=== PATIENT | female | born 1985 | race Caucasian/White ===

== ENCOUNTER 2020-12-16 11:54 | Outpatient (CLI) | payer OTHER, SELFPAY ==
--- NOTE | 2020-12-16 12:00 | XR_ITS ---
WS: [id number] XR KUB [id number] REASON FOR EXAM: STONES FINDINGS: The examination is unchanged compared to previous study of 12/13/2020. There are a group of 3 calculi overlying the lower pole of the left kidney and additional small calcu santi overlying the midportion of the left kidney. A single calculus is seen overlying the mid to lower portion of the right kidney. No calculi along the course of the ureters or in the bladder region are identified. XR/XR KUB [id number] IMPRESSION: Bilateral intrarenal calculi.
== END 2020-12-16 11:55 | disposition home or self-care (01) ==
LOC: RAD 11:57
PROVIDERS: PCP Family Medicine; Visit Provider Urology
DX: N20.0 Calculus of kidney (principal)
CPT/HCPCS: 74018; 81003

== ENCOUNTER 2020-12-31 15:17 | Outpatient (CLI) | payer OTHER, SELFPAY ==
--- NOTE | 2020-12-31 15:15 | XR_ITS ---
WS: [id number] KUB, 12/31/2020 Clinical Data: N20.0 - Calculus of kidney Comparison: KUB, 12/16/2020. Findings: There are several calcifications overlying the midportion left kidney. There is a calcification of th e right of the L2 transverse process which may be in the right kidney or in the proximal right ureter . There is a calcification in the true pelvis just to the left of the sacrum which could be in the blad ryan. The SI joints and pubic symphysis are normal. The bowel gas pattern is unremarkable.. XR/XR KUB [id number] Impression: Bilateral renal and/or ureteral calculi.
== END 2020-12-31 15:18 | disposition home or self-care (01) ==
PROVIDERS: PCP Family Medicine; Visit Provider Urology
DX: N20.0 Calculus of kidney (principal)
CPT/HCPCS: 74018; 81003

== ENCOUNTER 2021-01-08 07:20 | Outpatient (CLI) | payer OTHER, SELFPAY ==
--- NOTE | 2021-01-08 07:15 | XR_ITS ---
WS: [id number] KUB, AP view, 01/08/2021 Clinical Data: N20.0 - Calculus of kidney Comparison: KUB, 12/31/2020. Findings: There are several calcifications overlying the left kidney. There is a calcification of the right of the L2 transverse process which may be in the right renal pelvis. There is a small calcification on the left side of the true pelvis which could be in the bladder. The re is a density overlying the right ilium which was not previously present but may be on the patient' s clothing. XR/XR KUB [id number] Impression: Bilateral renal calculi and possible left true pelvic calculus.
== END 2021-01-08 07:21 | disposition home or self-care (01) ==
LOC: RAD 07:21
PROVIDERS: PCP Family Medicine; Visit Provider Urology
DX: N20.0 Calculus of kidney (principal)
CPT/HCPCS: 74018; 81003

== ENCOUNTER 2021-01-12 12:55 | Day surgery (SDC) | payer OTHER, SELFPAY ==
[2021-01-09 16:57] VITALS: BMI 27.4
--- NOTE | 2021-01-12 13:04 | XRR_ITS ---
PROCEDURE INFORMATION: Exam: XR Abdomen Exam date and time: 01/12/2021 3:05 AM Age: 35 years old Clinical indication: Condition or disease; Kidney or ureter condition; Calculus (stone) in kidney; Additional info: Right renal calculus TECHNIQUE: Imaging protocol: XR of the abdomen. Views: Frontal supine view of the abdomen. 1 View. COMPARISON: CR XR KUB [id number] 01/08/2021 7:33 AM FINDINGS: Gastrointestinal tract: Normal. No bowel dilation. Organs: Radiodense urinary tract stones are present in the upper pole right kidney 4.4 mm. Radiodense urinary tract stones are also seen in the upper pole left kidney 4 mm and 7.8 mm. These findings were present on prior examination and appears similar. Examination is negative for stones in the projection of the urinary outflow tracts. Bones/joints: Unremarkable. XR/XR KUB [id number] IMPRESSION: 1. Stable calcified urinary tract stones in both kidneys as described. 2. Otherwise No acute findings.
[2021-01-12 13:29] LABS: OR HCG Qualitative Urine Negative (Negative)
[2021-01-12 13:31] VITALS: BP 157/93; PULSE 80; RESP 18; TEMP 36.8; O2SAT 96
[2021-01-12] MEDS: sodium chloride 0.9% 1,000 ML 30 ML IV (13:39)
--- NOTE | 2021-01-12 14:51 | ANES.PREANE2 ---
Pre-Anesthetic Assessment Pre-Anesthetic Assessment: Height/Weight: Height 1.63 m Weight 72.575 kg Temp Pulse Resp BP Pulse Ox 98.2 F 80 18 157/93 96 01/12/21 13:31 01/12/21 13:31 01/12/21 13:31 01/12/21 13:31 01/12/21 13:31 Preop Diagnosis: Symptomatic right renal calculus Proposed Procedure: Operation Date: 01/12/21 14:25 Proposed Procedures p Cystoscopy 47475 85472 N20.0(Not Applicable) - Rafa Enriquez MD s right Ureteral Stent Placement(Right) - Rafa Enriquez MD s ESWL(Not Applicable) - Rafa Enriquez MD Was Beta Oscar taken within 24 hours: N/A Was Clonidine taken within 24 hours: N/A Last intake: Intake Last Liquid Date 01/12/21 Last Liquid Time 09:00 Last Solid Date 01/11/21 Last Solid Time 08:00 Social: Social History: No alcohol and No tobacco Exam: Pre-Anes Outpt Exam: alert, oriented x 3, clear to auscultation bilaterally and regular rate & rhythm Airway: Submandibular: WNL Cervical ROM: WNL MP: 2 Pulmonary: Pulmonary: None reported CV/HEM: CV/HEM: None reported : Comments: Recurrent kidney stones Hepatic: Hepatic: None reported GI: GI: GERD (Mild and triggered by spicy foods) Metabolic: Metabolic: None reported Musc/skel: Musc/skel: None reported Neuropsych: Neuropsych: None reported Anesthetic Plan: ASA status: 2 Anesthesia: General Meds/Allergies Current Medications: Current Medications Generic Name Dose Route Start Last Admin Trade Name Freq PRN Reason Stop Dose Admin Sodium Chloride 1,000 mls @ 30 ml s/hr 01/12/21 13:15 01/12/21 13:39 Sodium Chloride 0.9% IV 01/13/21 13:14 30 mls/hr .Q24H MARINO Administration PFSH Anesthesia PFSH: Medical History Calculus of left kidney Complex partial epilepsy History of migraine headaches Renal calculus Right ureteral calculus S/P extracorporeal shock wave therapy Surgical History H/O dilation and curettage H/O: 2 c-sections Family History Father Lung disease Social History Smoking and tobacco status: never smoked Alcohol intake: current Alcohol intake frequency: holidays/special occasions only Marital status: Current occupational status: employed Current occupation: [employer] History of recent travel: No Data Anesthesia Other Labs: Laboratory Results - last 48 hr 01/12/21 13:20 Urine HCG, Qual Negative Cardiac Studies: No Data to Display
--- NOTE | 2021-01-12 14:55 | P.HPUD_ITS ---
Surgery/Procedure H&P Update DATE OF PROCEDURE: January 12, 2021 DATE H&P PERFORMED: 01/08/21 H&P UPDATE INFORMATION: I have reviewed H&P completed within last 30 days, I have examined patient prior to procedure, No changes to prior documentation and H&P is in [facility] EMR on date indicated PREOP DIAGNOSIS: Symptomatic right renal calculus PRIMARY INDICATION FOR PROCEDURE: KUB shows the stone in roughly the same position in the right kidney. PLANNED PROCEDURE: Operation Date: 01/12/21 14:25 Proposed Procedures p Cystoscopy 97404 71518 N20.0(Not Applicable) - Rafa Enriquez MD s right Ureteral Stent Placement(Right) - Rafa Enriquez MD s ESWL(Not Applicable) - Rafa Enriquez MD
--- NOTE | 2021-01-12 14:56 | PM.OP ---
Operative Report Date of procedure: January 12, 2021 Pre-op Diagnosis: Symptomatic right renal calculus Post-op diagnosis: same Procedure Done: 1. Extracorporeal shockwave lithotripsy, right renal calculus 2. Cystoscopy with right ureteral stent placement (6 [place]an by 26 cm double-pigtail without string) Pathology: none sent Surgeon: Zoe Anesthesia: General Estimated blood loss: Minimal Urine output: Not measured Complications: None Findings: Stone easily identified and focused upon with fluoroscopy and position changes dictated by that. Good change noted Condition: stable Disposition: PACU Brief History: Fernanda is a delightful 35-year-old white female with a history of complex stone disease. Has recently been seen for a right renal calculus that migrates back and forth from the right UPJ into the renal pelvis. She has been quite symptomatic at times. Ultimately she elected to proceed with intervention. Reviewed options including endoscopic versus ESWL and after detailed discussion of benefits risk etc. she elected ESWL with or without stent. Procedure: After routine preoperative evaluation examination and obtaining informed consent she was taken to the operating suite on 01/12/2021 where general anesthesia was administered without difficulty after appropriate timeout was performed, SCDs confirmed to be functioning, preoperative antibiotics administered, beta-stephon protocol confirmed. Positioned on the Dornier unit in supine position with the shock head posteriorly. The right renal calculus was easily identified and brought to the focal point. Shockwave was initiated intensity of 1 advanced an intensity of 4 at a rate of 70. A several minute pause was conducted after about 300 shocks Early change was noted. After about 800 shocks the rate was increased to 90. At around 1500 it was difficult to see any residual stone and the procedure was completed after 2000 shocks. She was then positioned in dorsolithotomy position paying careful attention to avoiding pressure points. Cystoscope was introduced into the urethra meatus. A flexible tip guidewire was easily advanced up the right ureter. A 6 Zimbabwean by 26 cm double-pigtail stent without string was then advanced over the guidewire through the cystoscope into appropriate position as confirmed via fluoroscopy and cystoscopy The bladder was drained and the procedure was completed. She tolerated the procedure well without complications and was awakened in the operating room and returned to the recovery in stable condition PLANS: 1. Anticipate discharge from outpatient surgery 2. Follow-up in 1 week with KUB and likely cystoscopy with stent removal 3. Strain all voids
[2021-01-12] MEDS: levofloxacin-dextrose 5 % 500 MG/100 ML PREMIX 100 MG IV (15:10)
[2021-01-12 16:14] VITALS: BP 111/81; PULSE 120; RESP 16; TEMP 36.2; O2SAT 100
--- NOTE | 2021-01-12 16:17 | P.PCN_ITS ---
PACU note PACU note: VSS, Good respiratory effort, report to ELECTRICAL ENGINEERING TECHNICIAN Post-Anesthesia Exam: awake
--- NOTE | 2021-01-12 16:17 | PM.PACU ---
PACU note PACU note: VSS, Good respiratory effort, report to ELECTRIC DOLLY OPERATOR Post-Anesthesia Exam: awake
[2021-01-12 16:20] VITALS: BP 124/80; PULSE 114; RESP 18; O2SAT 100
[2021-01-12 16:25] VITALS: BP 120/84; PULSE 99; RESP 12; TEMP 36.6; O2SAT 99
--- NOTE | 2021-01-12 16:25 | ANE.PACU2 ---
Inpatient post-anesthesia follow up: Airway intact: Yes Vital signs: Temperature 97.2 F Pulse Rate 114 Respiratory Rate 18 Blood Pressure 124/80 Pulse Oximetry 100 Oxygen Delivery Me thod Room Air Oxygen Flow Rate Fraction of Inspir ed Oxygen Hydration adequate: Yes Nausea and vomiting: No Pain level: 2 Mental status: Baseline
[2021-01-12 16:35] VITALS: BP 136/69; PULSE 100; RESP 18; TEMP 36.6; O2SAT 99
[2021-01-12 16:49] VITALS: BP 140/96; PULSE 97; RESP 18; TEMP 36.6; O2SAT 97
== END 2021-01-12 17:10 | disposition home or self-care (01) ==
PROVIDERS: Anesthesiology; PCP Family Medicine; Visit Provider Urology
PROC: 0TJB8ZZ Inspection of Bladder, Via Natural or Artificial Opening Endoscopic (ICD-10-PCS; CPT 52000; principal; 2021-01-12 14:20)
PROC: (CPT 50605; 2021-01-12 14:20)
PROC: (CPT 50590; 2021-01-12 14:20)
DX: N20.0 Calculus of kidney (principal)
CPT/HCPCS: 50590; 52332; 74018; 84703; 96365; C2625; J1100; J1956; J2250; J2405; J2704; J2710; J3010; J3490; J7030

== ENCOUNTER 2021-01-20 08:09 | Outpatient (CLI) | payer OTHER, SELFPAY ==
--- NOTE | 2021-01-20 08:24 | XRR_ITS ---
PROCEDURE INFORMATION: Exam: XR Abdomen Exam date and time: 01/20/2021 8:27 AM Age: 35 years old Clinical indication: Condition or disease; Kidney or ureter condition; Calculus (stone) in kidney; Prior surgery; Surgery type: C section; Additional info: Kidney stone TECHNIQUE: Imaging protocol: XR of the abdomen. Views: Frontal supine view of the abdomen. 1 View. COMPARISON: CR XR KUB [id number] 01/12/2021 1:11 PM FINDINGS: Tubes, catheters and devices: A right ureteral stent projects in satisfactory position. Gastrointestinal tract: Normal. No bowel dilation. Organs: Multiple calcifications project on the kidneys bilaterally. The calculus previously seen in the right kidney appears to be fragmented into smaller densities projecting in the right kidney. The left renal calcifications are unchanged. No definite calculi are seen in the course of the ureters. Bones/joints: Unremarkable. XR/XR KUB [id number] IMPRESSION: 1. Satisfactory right ureteral stent position. 2. The previously noted right renal calcification appears fragmented into smaller calcifications now in the right kidney. 3. No significant change in the left renal calcifications.
== END 2021-01-20 08:10 | disposition home or self-care (01) ==
PROVIDERS: PCP Family Medicine; Visit Provider Urology
DX: N20.0 Calculus of kidney (principal); Z96.0 Presence of urogenital implants
CPT/HCPCS: 74018; 81003

== ENCOUNTER 2021-04-21 07:28 | Outpatient (CLI) | payer OTHER, SELFPAY ==
--- NOTE | 2021-04-21 07:30 | XR_ITS ---
WS: [id number] KUB, AP view, 04/21/2021 Clinical Data: RENAL CALCULUS Comparison: KUB, 01/20/2021. Findings: The right kidney is obscured by overlying fecal material and colon gas. There are calcifications over lying the left kidney. The right ureteral stent has been removed. There are probable phleboliths in t he left true pelvis. The bowel gas pattern is not remarkable. XR/XR KUB [id number] Impression: 1. Right kidney obscured by equal material and gas. 2. Left renal calcifications.
== END 2021-04-21 07:29 | disposition home or self-care (01) ==
PROVIDERS: PCP Family Medicine; Visit Provider Urology
DX: N20.0 Calculus of kidney (principal)
CPT/HCPCS: 74018; 81003

== ENCOUNTER 2021-07-14 07:19 | Outpatient (CLI) | payer OTHER, SELFPAY ==
--- NOTE | 2021-07-14 07:15 | XR_ITS ---
WS: [id number] XR KUB [id number] REASON FOR EXAM: RENAL CALCULUS FINDINGS: Examination is unchanged compared to 04/21/2021. There are 3 left renal calculi identified. Previously identified right renal calculi obscured by overlying bowel. No ureteral or bladder calculi. XR/XR KUB [id number] IMPRESSION: Renal calculi as above.
== END 2021-07-14 07:20 | disposition home or self-care (01) ==
PROVIDERS: PCP Family Medicine; Visit Provider Urology
DX: N20.0 Calculus of kidney (principal)
CPT/HCPCS: 74018; 81003; 87086

== ENCOUNTER 2021-07-27 10:20 | Day surgery (SDC) | payer OTHER, SELFPAY ==
[2021-07-24 12:40] VITALS: BMI 29.7
[2021-07-27] VITALS (10 sets, daily range): BP systolic 98–140; BP diastolic 57–100; PULSE 74–97; RESP 9–17; TEMP 36.6–36.9; O2SAT 96–100
--- NOTE | 2021-07-27 10:23 | XR_ITS ---
WS: [id number] Exam: XR KUB [id number] Date/Time of Exam: 07/27/2021 10:32 AM Reason For Exam: Preop left renal ESWL Comparison 07/14/2021. No bowel obstruction or free air. There are 2 calcifications superimposing the left kidney that may r epresent renal calculi. The largest about 6 mm and the smaller calcification about 3 mm. No sign of o rgan enlargement. Regional bony elements are intact. Small nonspecific pelvic calcifications are seen on the left. XR/XR KUB [id number] IMPRESSION: 1. 2 calcifications superimposing the left kidney probably representing renal c alculi. 2. No acute abdominal finding. 3. Small nonspecific left pelvic calcifications.
[2021-07-27] MEDS: sodium chloride 0.9% 1,000 ML 30 ML IV (11:17)
--- NOTE | 2021-07-27 11:19 | P.ANESASSM_ITS ---
Pre-Anesthetic Assessment Pre-Anesthetic Assessment: Height/Weight: Height 1.63 m Weight 78.471 kg Temp Pulse Resp BP Pulse Ox 97.8 F 79 16 140/100 96 07/27/21 10:45 07/27/21 10:45 07/27/21 10:45 07/27/21 10:45 07/27/21 10:45 Preop Diagnosis: Left renal calculus Proposed Procedure: Operation Date: 07/27/21 12:00 Proposed Procedures p ESWL [id number] 86774 N20.0(Not Applicable) - Rfaa Enriquez MD s Cystoscopy(Not Applicable) - Rafa Enriquez MD s Ureteral Stent Placement(Not Applicable) - Rafa Enriquez MD Was Beta Oscar taken within 24 hours: N/A Was Clonidine taken within 24 hours: N/A Last intake: Intake Last Liquid Date 07/26/21 Last Liquid Time 22:00 Last Solid Date 07/25/21 Last Solid Time 19:00 Social: Social History: No tobacco Exam: Pre-Anes Outpt Exam: alert, oriented x 3, clear to auscultation bilaterally and regular rate & rhythm Airway: Submandibular: WNL Cervical ROM: WNL MP: 1 Additional comments: permanent retainer History/ROS: No significant history except as noted and No significant complaints GI: GI: GERD (occasional only.) Neuropsych: Neuropsych: Depression Anesthetic Plan: ASA status: 2 Anesthesia: Anesthesia Evaluation and General Risk of > 500 ml blood loss (7ml/kg in children): No Meds/Allergies Current Medications: Current Medications Generic Name Dose Route Start Last Admin Trade Name Freq PRN Reason Stop Dose Admin Sodium Chloride 1,000 mls @ 30 ml s/hr 07/27/21 10:30 07/27/21 11:17 Sodium Chloride 0.9% IV 07/28/21 10:29 30 mls/hr .Q24H MARINO Administration PFSH Anesthesia PFSH: Medical History Calculus of left kidney Complex partial epilepsy History of migraine headaches Renal calculus Right ureteral calculus Surgical History H/O dilation and curettage H/O: 2 c-sections S/P extracorporeal shock wave therapy Family History Father Lung disease Social History Alcohol intake: current Alcohol intake frequency: holidays/special occasions only Marital status: Current occupational status: employed Current occupation: [employer] History of recent travel: No Data Anesthesia Cardiac Studies: No Data to Display
[2021-07-27 11:25] LABS: OR HCG Qualitative Urine Negative (Negative)
--- NOTE | 2021-07-27 12:07 | W.PM.OPSUD ---
Surgery/Procedure H&P Update DATE OF PROCEDURE: July 27, 2021 DATE H&P PERFORMED: 07/13/21 H&P UPDATE INFORMATION: I have reviewed H&P completed within last 30 days, I have examined patient prior to procedure, No changes to prior documentation and H&P is in [facility] [place] on date indicated CHANGES TO PREVIOUS DOCUMENTATION: No changes. Reviewed again stent versus no stent and parameters by which the decision is made intraoperatively. Lean toward stent placement unless cannot see the stone PREOP DIAGNOSIS: Left renal calculus PLANNED PROCEDURE: Operation Date: 07/27/21 12:00 Proposed Procedures p ESWL [id number] 82846 N20.0(Not Applicable) - Rafa Enriquez MD s Cystoscopy(Not Applicable) - Rafa Enriquez MD s Ureteral Stent Placement(Not Applicable) - Rafa Enriquez MD
[2021-07-27] MEDS: levofloxacin-dextrose 5 % 500 MG/100 ML PREMIX 100 MG IV (12:09)
--- NOTE | 2021-07-27 12:18 | P.OP_ITS ---
Operative Report Date of procedure: July 27, 2021 Pre-op Diagnosis: Left renal calculus Post-op diagnosis: same Procedure Done: 1. Extracorporeal Shock wave lithotripsy: left renal stone 2. No stent Pathology: none sent Surgeon: Zoe Consumer Marketing Specialist: Tran Anesthesia: General Estimated blood loss: none Urine output: Not measured Complications: none Findings: 2500 shocks excellent change to both stones Condition: stable Disposition: PACU Brief History: Chronic LEFT LP and L MP renal stone with desire to become stone free. Procedure: After routine preoperative evaluation examination and obtaining of informed consent she was taken to the operating suite on 07/27/2021 where general anesthesia was administered without difficulty after appropriate timeout was performed, SCDs confirmed to be functioning, preoperative antibiotics administered, beta-stephon protocol confirmed. Positioned on the Dornier unit such that the stone was located the focal point utilizing biplanar fluoroscopy. The shock head was positioned posteriorly. The larger of the 2 stones, left lower pole stone, was brought into focus and easily focused upon. Shockwave therapy was initiated at a rate of 70 and advanced throughout the procedure to a rate of 90. After about 250-300 shocks a several minute pause was conducted. There is early and dramatic change in the stone. A total of 1500 shocks were administered to the left lower pole stone by that time the stone could no longer be seen. Attention was then directed to the smaller left interpolar stone and then receive the remaining of shocks up to 2500 total with good change as well. She tolerated the procedure well without complications and was awakened in the operating room and returned to the recovery room in stable condition. PLANS: 1. Anticipate discharge from outpatient surgery today 2. Follow-up in 3 weeks with KUB.
[2021-07-27] MEDS: oxyCODONE-APAP 5-325 mg Tablet 1 TAB PO (13:50)
--- NOTE | 2021-07-27 14:21 | ANE.PACU2 ---
Inpatient post-anesthesia follow up: Airway intact: Yes Vital signs: Temperature 98 F Pulse Rate 84 Respiratory Rate 16 Blood Pressure 127/96 Pulse Oximetry 98 Oxygen Delivery Me thod Room Air Oxygen Flow Rate 8 Fraction of Inspir ed Oxygen Hydration adequate: Yes Nausea and vomiting: No Pain level: 3 Mental status: Baseline
== END 2021-07-27 14:30 | disposition home or self-care (01) ==
PROVIDERS: Anesthesiology; PCP Family Medicine; Visit Provider Urology
PROC: (CPT 50590; principal; 2021-07-27 12:00)
DX: N20.0 Calculus of kidney (principal)
CPT/HCPCS: 50590; 74018; 81025; 84703; J1100; J1956; J2405; J2704; J3010; J7030

== ENCOUNTER 2021-08-12 08:19 | Outpatient (CLI) | payer OTHER, SELFPAY ==
--- NOTE | 2021-08-12 08:24 | XR_ITS ---
WS: [id number] KUB, AP view, 08/12/2021 Clinical Data: eswl Comparison: KUB, 07/27/2021. Findings: No abnormal intraabdominal masses or calcifications are seen. There is no dilatated small bowel or ev idence of obstruction. The 2 calcifications overlying the left kidney on the prior exam are not seen. There are phleboliths in the true pelvis. XR/XR KUB [id number] Impression: Negative KUB.
== END 2021-08-12 08:20 | disposition home or self-care (01) ==
LOC: RAD 08:21
PROVIDERS: PCP Family Medicine; Visit Provider Urology
DX: N20.0 Calculus of kidney (principal)
CPT/HCPCS: 74018; 81003; 82365; 88300

== ENCOUNTER 2021-09-23 11:58 | Outpatient (CLI) | payer OTHER, SELFPAY ==
--- NOTE | 2021-09-23 12:03 | CT_ITS ---
WS: [id number] CT HEAD WITH AND WITHOUT CONTRAST HISTORY: HEADACHE TECHNIQUE: Noncontrast 2.5 mm axial images obtained from the vertex to the skull base. Additional michael ging performed at 2.5 mm axial images status post IV contrast. Bone and soft tissue windows are revie wed. All CT scans at [facility] use at least one of these dose optimization techniques: autom ated exposure control; mA and/or kV adjustment per patient size (includes targeted exams where dose i s matched to clinical indication); or iterative reconstruction. CONTRAST: Omnipaque 300; 95 mL IV. DLP: 1135.26 mGy.cm COMPARISON: 08/02/2018 No acute intracranial hemorrhage, edema or midline shift. No enhancing mass or vascular malformations identified. Dural venous sinuses are normally enhancing. Visualized [place] is unremarkable. Paranasal sinuses as visualized: Clear. Mastoid air cells: Clear. Calvarium and scalp: Intact. No enhancing masses or vascular malformations are appreciated by CT. Dural venous sinuses are normall y enhancing. There is an arachnoid granulation in the straight sinus. CT/CT head wo/w con [id number] IMPRESSION: Negative head CT. No acute intracranial process or mass.
[2021-09-23] MEDS: iohexol 300 mg/mL 100 mL Btl IV (13:14)
== END 2021-09-23 11:59 | disposition home or self-care (01) ==
LOC: RAD 11:59
PROVIDERS: PCP Family Medicine; Visit Provider Nurse Practitioner Family
DX: R51.9 Headache, unspecified (principal)
CPT/HCPCS: 70470

== ENCOUNTER 2021-10-19 09:34 | Outpatient (CLI) | payer OTHER, SELFPAY ==
[2021-10-19 10:06] LABS: D Dimer 0.86 ug/mIFEU (0-0.59)
== END 2021-10-19 09:35 | disposition home or self-care (01) ==
LOC: LAB 09:36
PROVIDERS: PCP Family Medicine; Visit Provider Nurse Practitioner
DX: R06.02 Shortness of breath (principal)
CPT/HCPCS: 85378

== ENCOUNTER 2021-10-19 17:43 | Emergency (ER) | payer OTHER, SELFPAY ==
[2021-10-19 18:16] VITALS: BP 139/88; PULSE 122; RESP 16; TEMP 37.3; O2SAT 96
--- NOTE | 2021-10-19 18:29 | CTR_ITS ---
PROCEDURE INFORMATION: Exam: CTA Chest With Contrast Exam date and time: 10/19/2021 6:29 PM Age: 36 years old Clinical indication: Angina and shortness of breath; Patient HX: Covid+; Additional info: SOB TECHNIQUE: Imaging protocol: Computed tomographic angiography of the chest with contrast. 3D rendering (Not supervised by radiologist): MIP and/or 3D reconstructed images were created by the technologist. Radiation optimization: All CT scans at this facility use at least one of these dose optimization techniques: automated exposure control; mA and/or kV adjustment per patient size (includes targeted exams where dose is matched to clinical indication); or iterative reconstruction. Contrast material: OMNI 350; Contrast volume: 68 ml; Contrast route: INTRAVENOUS (IV); COMPARISON: No relevant prior studies available. RADIATION DOSE METRICS: Total DLP (mGy-cm): 582.31 FINDINGS: Pulmonary arteries: Normal. No pulmonary emboli. Aorta: No aortic aneurysm. No aortic dissection. Lungs: Minimal patches of ground-glass opacity in the right lung likely are infectious/inflammatory. Pleural spaces: No pneumothorax. No pleural effusion. Heart: No cardiomegaly. No pericardial effusion. Lymph nodes: No enlarged lymph nodes. Bones/joints: Minimal irregularity of anterior left rib 5 is suspicious for fracture that can be correlated clinically for focal discomfort due to its subtlety. Soft tissues: Unremarkable. CT/CT angio chest PE protcl [id number] IMPRESSION: Minimal infiltrates are likely infectious/inflammatory. No evident pulmonary embolic disease. Minimal irregularity of anterior left rib 5 is suspicious for fracture that can be correlated clinically.
[2021-10-19] MEDS: iohexol 350 mg/mL 100 mL Btl IV (20:38)
--- NOTE | 2021-10-19 20:44 | ED_ITS ---
HPI - COVID General: Chief Complaint: COVID symptoms Stated Complaint: COVID + Trouble breathing Time Seen by Provider: 10/19/21 20:26 Source: patient Mode of arrival: ambulatory Limitations: no limitations Triage information: Has fever, cough or shortness of breath . Exposure to COVID + person last 14 days History of Present Illness: HPI Narrative: 36-year-old female states that since last Tuesday she has had cough congestion since Tuesday. She states that she had a D-dimer that was elevated 0.69 so her PCP sent her here for CT angio. She denies any chest pain she had very minimal shortness of breath states she continues to have congestion she is in no distress here. She had low-grade fevers. Denies any vomiting or diarrhea. COVID 19 common symptoms: positive non-productive cough and dyspnea; negative fever(s), chills, body aches, headache(s), throat pain, nausea, vomiting or diarrhea COVID 19 other sytmptoms: negative chest pain COVID Results: 2 No Data to Display Review of Systems Const: Denies: fever(s), chills, body aches or change in appetite Eyes: Denies: blurry vision or eye discomfort ENMT: Denies: throat pain or dental pain Card: Denies: chest pain Resp: Reports: dyspnea and non-productive cough GI: Denies: abdominal pain, nausea, vomiting or diarrhea : Denies: dysuria Musc: Denies: neck pain or back pain Skin/Breast: Denies: rash Neuro: Denies: headache(s) Psych: Denies: depression Fawad/Lymph: Denies: easy bruising All/Imm: Denies: urticaria PFSH ED PFSH: Medical History Calculus of left kidney Complex partial epilepsy History of migraine headaches Renal calculus Right ureteral calculus Surgical History H/O dilation and curettage H/O: 2 c-sections S/P extracorporeal shock wave therapy Family History Father Lung disease Social History Alcohol intake: current Alcohol intake frequency: holidays/special occasions only Marital status: Current occupational status: employed Current occupation: [employer] History of recent travel: No Physical Exam Const: COMMON NORMALS: no acute distress, patient oriented x3 and healthy appearing HENMT: COMMON NORMALS: normocephalic and atraumatic HEAD & SCALP: n ormocephalic and atraumatic Eye: COMMON NORMALS: Equal, round and reactive pupils present and EOMs intact bilaterally PUPIL: Yes Equal, round and reactive pupils present Neck/C-Spine: COMMON NORMALS: full ROM and supple Chest: COMMONS NORMALS: normal inspection of the chest and normal palpation of entire chest wall Resp: COMMON NORMALS: normal respiratory effort, No retractions, No use of accessory muscles and clear to auscultation bilaterally AUSCULTATION: clear to auscultation bilaterally Cardio: COMMON NORMALS: regular rate, regular rhythm and No murmurs present (Cardio) RATE: regular rate RHYTHM: regular rhythm GI: COMMON NORMALS: Normal to inspection, nondistended, normoactive bowel sounds present, Soft to palpation, non-tender and no masses PALPATION: Yes Soft to palpation Extremity: COMMON NORMALS: normal to inspection and full ROM Neuro: COMMON NORMALS: patient oriented x3, moves all extremities and no focal motor deficits Psych: COMMON NORMALS: mental status grossly normal, Normal thought process present and cooperative THOUGHT PROCESS: Normal thought process present Skin: COMMON NORMALS: no rashes or lesions noted and no wounds GENERAL SKIN EXAM: no rashes or lesions noted Course Vital Signs: Vital signs: Vital Signs Temperature 98.7 F 10/19/21 21:04 Pulse Rate 110 H 10/19/21 21:04 Respiratory Rate 20 H 10/19/21 21:04 Blood Pressure 139/90 10/19/21 21:04 Pulse Oximetry 98 10/19/21 21:04 MDM - COVID MDM Narrative: Medical decision making narrative: Patient presents here with COVID was sent here to rule out pulmonary embolism CT here is negative she is stable for discharge is to follow-up with PCP and return if worsening she understands agrees to plan. Imaging Data: CT Chest: Radiologist's impression: CT/CT angio chest PE protcl [id number] IMPRESSION: Minimal infiltrates are likely infectious/inflammatory. No evident pulmonary embolic disease. Minimal irregularity of anterior left rib 5 is suspicious for fracture that can be correlated clinically. COVID Results: No Data to Display Discharge Plan Discharge Patient Disposition: Home Clinical Impression: COVID-19 Condition: Stable Prescriptions: No Action venlafaxine 25 mg tablet 50 mg PO DAILY RF: 0 amoxicillin-pot clavulanate 875-125 mg tablet 1 tab PO BID Qty: 30 RF: 2 Percocet 5-325 mg tablet 1 tab PO Q6H Qty: 12 RF: 0 Discharge Orders: Discharge ED (Routine); Ordered 10/19/21 Ordered By: Jorge Luis Cody Referrals: Fermin Palm MD [Primary Care Provider] - 1-3 days Discharge Diet: Advance as tolerated Discharge Activity: Resume usual activity Patient Instructions: COVID-19 (Coronavirus Disease 2019) (ED) Coding Level of Care Code ED 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
[2021-10-19 21:04] VITALS: BP 139/90; PULSE 110; RESP 20; TEMP 37.1; O2SAT 98
[2021-10-19 21:08] VITALS: O2SAT 98
[2021-10-19 21:16] VITALS: BP 139/90; PULSE 110; RESP 20; TEMP 37.1; O2SAT 98
== END 2021-10-19 21:17 | disposition home or self-care (01) ==
PROVIDERS: Emergency Provider Emergency Medicine; PCP Family Medicine
DX: U07.1 COVID-19 (principal)
CPT/HCPCS: 71275; 99283; Q9967

== ENCOUNTER 2022-03-04 16:48 | Outpatient (CLI) | payer OTHER, SELFPAY ==
--- NOTE | 2022-03-04 | XR_ITS ---
WS: [id number] PROCEDURE: XR chest 2V* [id number] CLINICAL INFORMATION: SHORTNESS OF BREATH COMPARISON: October 19, 2021 FINDINGS: Heart: Normal cardiac silhouette. Lungs: Lungs are clear. No consolidation or pleural fluid. No acute pulmonary infiltrates. Bones: Irregularity involving a mid RIGHT lateral rib, approximately 5th rib laterally, likely due to chronic healed fracture. Recommend correlation with RIGHT rib pain. XR/XR chest 2V* [id number] IMPRESSION: 1. No acute pulmonary infiltrates. 2. Irregularity involving a mid RIGHT lateral rib, approximately 5th rib later ally, likely due to chronic healed fracture. Recommend correlation with RIGHT r ib pain. 3. No other significant findings.
== END 2022-03-04 16:49 | disposition home or self-care (01) ==
LOC: RADOUTREAD 16:52
PROVIDERS: PCP Family Medicine; Visit Provider Nurse Practitioner Family
DX: R06.02 Shortness of breath (principal)
CPT/HCPCS: 71046

== ENCOUNTER 2022-08-12 07:58 | Outpatient (CLI) | payer OTHER, SELFPAY ==
--- NOTE | 2022-08-12 08:05 | XR_ITS ---
WS: [id number] KUB, AP view, 08/12/2022 Clinical Data: Calculus of Kidney Comparison: None. Findings: No abnormal intraabdominal masses or calcifications are seen. There is no dilatated small bowel or ev idence of obstruction. There is fecal material obscuring detail over both kidneys. There is a moderate amount of fecal mater ial in the colon. The bladder is full. XR/XR KUB [id number] Impression: Negative KUB.
== END 2022-08-12 07:59 | disposition home or self-care (01) ==
LOC: RAD 07:59
PROVIDERS: PCP Family Medicine; Visit Provider Urology
DX: N20.0 Calculus of kidney (principal)
CPT/HCPCS: 74018; 81003

== ENCOUNTER 2024-02-02 18:49 | Emergency (ER) | payer OTHER, SELFPAY ==
[2024-02-02 18:50] VITALS: BP 142/90; PULSE 99; TEMP 36.5; O2SAT 100; BMI 31.2
--- NOTE | 2024-02-02 18:53 | ECG_ITS ---
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 Measurements Intervals [place] Rate: 105 P: 32 LA: 163 QRS: 199 QRSD: 88 T: 46 QT: 328 QTc: 434 Interpretive Statements SINUS TACHYCARDIA POSSIBLE LEFT ATRIAL ENLARGEMENT [-0.1mV P-WAVE IN V1/V2] INDETERMINATE AXIS LOW QRS VOLTAGE IN PRECORDIAL LEADS [QRS DEFLECTION < 1.0 mV IN CHEST LEADS] POSSIBLE RIGHT VENTRICULAR CONDUCTION DELAY [RSR (QR) IN V1/V2] POSSIBLE ANTERIOR MYOCARDIAL INFARCTION , PROBABLY OLD [30 ms Q WAVE IN V3/V4, OR R < 0.2 mV IN V4] Compared to ECG 07/28/2018 11:37:24 Indeterminate axis now present.Low QRS voltage now present Myocardial infarct finding now present.Sinus rhythm no longer present Incomplete right bundle-branch block no longer present Electronically Signed On 02-02-2024 23:08:58 CDT by Sonido Vargas M.D. [email or web address]
== END 2024-02-02 19:13 | disposition left against medical advice (07) ==
PROVIDERS: Emergency Provider Family Medicine; PCP Family Medicine
DX: Z53.21 Procedure and treatment not carried out due to patient leaving prior to being seen by health care provider (principal)
CPT/HCPCS: 93005